=== PATIENT | female | born 1985 | race American Indian/Alaskan Native ===

== ENCOUNTER 2017-09-29 10:41 | Emergency (ER) | payer BC ==
[2017-09-29] MEDS ORDERED: NACL 0.9% 1000 ML 1,000 ML IV ONE (11:23)
[2017-09-29] MEDS ORDERED: ZOFRAN IV ONE ×3 (11:23→12:48)
[2017-09-29] MEDS ORDERED: MORPHINE IV ONE (11:24)
[2017-09-29 11:28] LABS: Bilirubin,Urine NEG (Negative); Blood,Urine NEG (Negative); Ketones,Urine NEG (Negative); Leukocyte Esterase,Urine NEG (Negative); Mucus,Urine 3+ /HPF; Nitrite,Urine NEG (Negative); Protein,Urine <15 mg/dL mg/dL (Negative); Urobilinogen,Urine < 2.0 mg/dL (<2.0)
--- NOTE | 2017-09-29 11:31 | Emergency Department Report ---
Chief Complaint: Abdominal Pain Stated Complaint: RIGHT SIDE ABD PAIN Time Seen by Provider: 09/29/17 11:20 - HPI History of Present Illness: Patient here for evaluation quadrant pain with occasional nausea,/complaints no missed periods, on iud. - Exam Vital Signs: Vital Signs 09/29/17 11:06 Temperature 98.4 F Pulse Rate 67 Respiratory 18 Rate Blood Pressure 104/65 O2 Sat by Pulse 100 Oximetry Physical Exam: Vital signs stable complaining of right-sided abdominal pain appears anxious in [id number] distress. Abdomen does have to right lower quadrant with tenderness to deep palpation. No masses appreciated no rigidity. Awake alert oriented 3 MSE screening note: Focused history and physical exam performed. Due to findings the following was ordered: Laboratory studies pain control IV fluids CT ordered. Patient main ed for further evaluation ED Disposition for MSE Condition: Stable Instructions: Abdominal Pain (ED)
[2017-09-29 11:58] LABS: Basophils % (Auto) 0.4 % (0.0-1.8); Eosinophils % (Auto) 0.4 % (0.0-4.3); Hematocrit 36.8 % (30.3-42.9); Hemoglobin 11.9 gm/dl (10.1-14.3); Mean Corpuscular HGB Conc 32 % (30-34); Mean Corpuscular Hemoglobin 28 pg (28-32); Mean Corpuscular Volume 86 fl (79-97); Platelet Count 472 K/mm3 (140-440); Red Blood Count 4.27 M/mm3 (3.65-5.03); Red Cell Distribution Width 12.8 % (13.2-15.2); White Blood Count 9.4 K/mm3 (4.5-11.0)
[2017-09-29 12:22] LABS: Alanine Aminotransferase 11 units/L (7-56); Albumin 3.9 g/dL (3.9-5); Albumin/Globulin Ratio 1.1 %; Alkaline Phosphatase 60 units/L (35-129); Anion Gap 18 mmol/L; BUN/Creatinine Ratio 13; Blood Urea Nitrogen 8 mg/dL (7-17); Calcium 8.3 mg/dL (8.4-10.2); Carbon Dioxide 24 mmol/L (22-30); Chloride 102.2 mmol/L (98-107); Glucose 119 mg/dL (65-100); Lipase 15 units/L (13-60); Potassium 3.9 mmol/L (3.6-5.0); Sodium 140 mmol/L (137-145); Total Protein 7.4 g/dL (6.3-8.2)
[2017-09-29] MEDS ORDERED: SUBLIMAZE IV ONE (12:48)
[2017-09-29] MEDS ORDERED: TORADOL IV ONE (12:48)
--- NOTE | 2017-09-29 12:57 | Emergency Department Report ---
HPI - General Chief Complaint: Abdominal Pain Time Seen by Provider: 09/29/17 11:20 - HPI HPI: Room 6 The patient is a 32-year-old female presented with a chief complaint of abdominal pain. The patient states she was awakened this morning with pain in the right lower quadrant and right back. Patient admits to nausea and vomiting and shaking chills. Patient denies fever. The patient gets her pain is scored 10/10 Location: Right flank Duration:, constant times hours Quality: Pain Severity:10/10 Modifying factors: [see above] Context: [see above] Mode of transportation: [not driving] ED Past Medical Hx - Past Medical History Previous Medical History?: No - Surgical History Additional Surgical History: - Family History Family history: no significant - Social History Smoking Status: Never Smoker Substance Use Type: None (denies illicit drug use), Alcohol (rarely) - Medications Home Medications: Home Medications Medication Instructions Recorded Confirmed Last Taken Type HYDROcodone/APAP 5-325 [[place] 1 - 2 each PO Q6HR PRN #10 tablet 09/29/17 Unknown Rx 5/325] Ibuprofen [Motrin] 800 mg PO Q8HR PRN #20 tablet 09/29/17 Unknown Rx Ondansetron [Zofran ODT TAB] 8 mg PO Q8HR #20 tab.rapdis 09/29/17 Unknown Rx ED Review of Systems ROS: Stated complaint: RIGHT SIDE ABD PAIN Other details as noted in HPI Constitutional: denies: fever Gastrointestinal: abdominal pain, nausea, vomiting Genitourinary: denies: hematuria Musculoskeletal: back pain Physical Exam - Physical Exam Vital Signs: Vital Signs 09/29/17 09/29/17 11:06 11:44 Temperature 98.4 F Pulse Rate 67 Respiratory 18 18 Rate Blood Pressure 104/65 O2 Sat by Pulse 100 Oximetry Physical Exam: GENERAL: The patient is well-developed well-nourished female on a stretcher. Be in moderate discomfort. [] HEENT: Normocephalic. Atraumatic. Extraocular motions are intact. Patient has moist mucous membranes. NECK: Supple. Trachea midline CHEST/LUNGS: Clear to auscultation. There is no respiratory distress noted. HEART/CARDIOVASCULAR: Regular. There is no tachycardia. There is no gallop rub or murmur. ABDOMEN: Abdomen is soft, with tenderness to palpation in the right upper and lower quadrants and left lower quadrant increases pressure. Patient has normal bowel sounds. There is no abdominal distention. SKIN: There is no rash. There is no edema. There is no diaphoresis. NEURO: The patient is awake, alert, and oriented. The patient is cooperative. The patient has normal speech MUSCULOSKELETAL: There is right CVA tenderness. There is no evidence of acute injury. ED Course Vital Signs 09/29/17 09/29/17 11:06 11:44 Temperature 98.4 F Pulse Rate 67 Respiratory 18 18 Rate Blood Pressure 104/65 O2 Sat by Pulse 100 Oximetry - Reevaluation(s) Reevaluation #1: 09/29/17 14:12 Patient states her pain is improving ED Medical Decision Making - Lab Data Result diagrams: 09/29/17 11:39 09/29/17 11:39 Laboratory Tests 09/29/17 09/29/17 09/29/17 11:16 11:39 11:39 WBC 9.4 RBC 4.27 Hgb 11.9 Hct 36.8 MCV 86 MCH 28 MCHC 32 RDW 12.8 L Plt Count 472 H Lymph % (Auto) 16.7 [place] % (Auto) 3.4 Eos % (Auto) 0.4 Baso % (Auto) 0.4 Lymph # 1.6 [place] # 0.3 Eos # 0.0 Baso # 0.0 Seg Neutrophils % 79.1 H Seg Neutrophils # 7.4 Sodium 140 Potassium 3.9 Chloride 102.2 Carbon Dioxide 24 Anion Gap 18 BUN 8 Creatinine 0.6 L Estimated GFR > 60 BUN/Creatinine Ratio 13 Glucose 119 H Calcium 8.3 L Total Bilirubin 0.30 AST 14 ALT 11 Alkaline Phosphatase 60 Total Protein 7.4 Albumin 3.9 Albumin/Globulin Ratio 1.1 Lipase 15 Urine Color Yellow Urine Turbidity Clear Urine pH 5.0 Ur Specific [place] 1.023 Urine Protein <15 mg/dl Urine Glucose (UA) Neg Urine Ketones Neg Urine Blood Neg Urine Nitrite Neg Urine Bilirubin Neg Urine Urobilinogen < 2.0 Ur Leukocyte Esterase Neg Urine WBC (Auto) 2.0 Urine RBC (Auto) 1.0 U Epithel Cells (Auto) 3.0 Urine Mucus 3+ Urine HCG, Qual Negative - Radiology Data Radiology results: report reviewed (CT abdomen and pelvis), image reviewed (CT abdomen and pelvis) CT abdomen and pelvis with and without IV contrast: Right flank pain. Images are obtained from the lower chest to the ischium prior to and following administration of IV contrast. Coronal and sagittal reconstructed images obtained on the contrasted images. The visualized lungs are unremarkable. The abdominal organs appear normal. The left kidney is unremarkable. A couple of millimeter or smaller sized calculi are identified in the right kidney. There is mild dilatation of the right ureter but no ureteral calculus or obstructing site noted. There is however a small calculus identified in the urinary bladder is in a passed calculus. The left urinary tract is unremarkable. The retroperitoneal structures are not otherwise remarkable. The unopacified bowel and mesentery appear normal. There is a 2 cm right ovarian cyst. Impression: 1. 2 tiny right renal calculi. 2. Mildly dilated right ureter and questionably recently passed calculus in the urinary bladder. Transcribed By: MARCUS Dictated By: LAN ROSE MD Electronically Authenticated By: LAN ROSE MD Signed Date/Time: 09/29/171345 DD/ 41 TD/TT: 09/29/171345 - Differential Diagnosis renal colic, appendicitis, pyelonephritis Critical care attestation.: If time is entered above; I have spent that time in minutes in the direct care of this critically ill patient, excluding procedure time. ED Disposition Clinical Impression: Acute right flank pain, Renal colic Disposition: TO HOME OR SELFCARE Is pt being admited?: No Does the pt Need Aspirin: No Condition: Stable Instructions: Abdominal Pain (ED), Renal Colic (ED) Additional Instructions: Return to the emergency department immediately should you develop worsening symptoms, fever, inability to tolerate food or liquid or any other concerns. Prescriptions: HYDROcodone/APAP 5-325 [[place] 5/325] 1 - 2 each PO Q6HR PRN #10 tablet PRN Reason: Pain Ibuprofen [Motrin] 800 mg PO Q8HR PRN #20 tablet PRN Reason: Pain Ondansetron [Zofran ODT TAB] 8 mg PO Q8HR #20 tab.rapdis Referrals: LAURA WALKER MD [Staff Physician] - 3-5 Days (Dr. Walker is a urologist. Please follow up with him for further evaluation) Time of Disposition: 14:14
--- NOTE | 2017-09-29 14:04 | Cat Scan Report ---
CT abdomen and pelvis with and without IV contrast: Right flank pain. Images are obtained from the lower chest to the ischium prior to and following administration of IV contrast. Coronal and sagittal reconstructed images obtained on the contrasted images. The visualized lungs are unremarkable. The abdominal organs appear normal. The left kidney is unremarkable. A couple of millimeter or smaller sized calculi are identified in the right kidney. There is mild dilatation of the right ureter but no ureteral calculus or obstructing site noted. There is however a small calculus identified in the urinary bladder is in a passed calculus. The left urinary tract is unremarkable. The retroperitoneal structures are not otherwise remarkable. The unopacified bowel and mesentery appear normal. There is a 2 cm right ovarian cyst. Impression: 1. 2 tiny right renal calculi. 2. Mildly dilated right ureter and questionably recently passed calculus in the urinary bladder.
[2017-09-29 14:26] VITALS: BP 103/72
== END 2017-09-29 14:26 | disposition home or self-care (01) ==
LOC: ED 10:41
DX: N23 Unspecified renal colic (principal); R10.31 Right lower quadrant pain
CPT/HCPCS: 36415; 74178; 80053; 81001; 81025; 83690; 85025; 96361; 96374; 96375; 96376; 99284; J1885; J2270; J2405; J3010; J7030; Q9967